=== PATIENT | female | born 1990 | race Caucasian/White ===

== ENCOUNTER → 2021-05-10 | Outpatient (CLI) | payer OTHER ==
[~2021-05-10] MED LIST: ALLEGRA ALLERG180 MG PO; FERROUS SULFAT325 M2 PO; IBUPROFEN800 MG PO; IRON325 M1 PO; MULTI-VITAMIN1 EAC1 PO; PERCOCET 5/325 T1 EA PO; VITAMIN B COMP1 EACH PO; VITAMIN B PO; VITAMIN C125 MG PO; VITAMIN D3125 MC1 PO
[2021-05-10 11:27] LABS: HEMOGLOBIN 13.6 gm/dl (12.3-15.3); RED BLOOD COUNT 4.17 M/UL (4.00-5.10); WHITE BLOOD COUNT 9.6 K/UL (4.5-11.0)
== END ==
LOC: OPSV2 10:14
PROVIDERS: Obstetrics & Gynecology
DX: Z01.812 Encounter for preprocedural laboratory examination (principal); N93.9 Abnormal uterine and vaginal bleeding, unspecified
CPT/HCPCS: 81001; 85025